=== PATIENT | female | born 1960 | race Caucasian/White ===

== ENCOUNTER 2023-12-10 22:59 | Emergency (ER) | payer BC, SELFPAY ==
[2023-12-10 23:11] VITALS: BP 130/76
[2023-12-11] MEDS: ATIVAN 1 MG IM (01:24)
--- NOTE | 2023-12-11 02:03 | ED.GENMED ---
History of Present Illness
General
Chief Complaint: Failure to Thrive
Source: patient
Exam Limitations: dementia
Time Seen by Provider: 12/11/23 00:44
Nursing documentation reviewed up to this point in time: agreed with
History of Present Illness
History of Present Illness:
Pleasantly demented
Review of Systems
Review of Systems
Allergies reviewed?: Yes
Unable to obtain full review of systems at this time due to: dementia
Other source history: ambulance crew
All Other Systems: Not applicable
Constitutional: Reports sleep disturbance; Denies fever
Psychiatric: Reports anxiety and other (Agitated)
Phy Exam
General Physical Exam
General Presentation: moderate distress (Moderate psychiatric distress)
General age: appears older than age
General Skin: warm and dry
General Habitus: debilitated
General Mental: anxious and tearful
General Hydration: appears well hydrated
ENT Exam
ENT Exam: EOMI, pharynx normal, neck supple and normocephalic
Cardiovascular Exam
Cardiovascular Exam: regular rate/rhythm and no edema
Pulmonary Exam
Pulmonary Exam: lungs clear, no respiratory distress, no rales, no crackles, no rhonchi, no stridor, no wheezing and no cough
Gastrointestinal Exam
Gastrointestinal Exam: normal bowel sounds, non tender, soft, no organomegaly, no pulsatile mass and non distended
Neurological Exam
Neurological Exam: confused
Musculoskeletal Exam
Musculoskeletal Exam: full ROM
Skin Exam
Skin Exam: normal color, warm/dry, no rash and no petechia
Psychiatric Exam
Psychiatric Exam: agitated and anxious
Course
Orders/Labs/Results
Orders:
Orders
12/11/23 01:19
Lorazepam [Ativan] 2 mg .ROUTE .STK-MED ONE
12/11/23 01:23
Lorazepam [Ativan] 1 mg IM NOW STA
12/11/23 02:01
Complete Blood Count/With Diff Urgent
Comprehensive Metabolic Panel Urgent
Lipase Urgent
PTT Urgent
Prothrombin Time Urgent
Troponin I Urgent
12/11/23 02:49
Electrocardiogram (*1) Urgent
Reason for Study: QTc Monitoring
EKG- Treatment ONCE
12/11/23 03:28
Troponin I Urgent
Abnormal Lab Results
12/11/23 12/11/23
02:01 03:28
Hct 36.9 L %
(37.0-47.0)
MCHC 37.1 H g/dL
(33.0-37.0)
Absolute Neuts (auto) 7.2 H 10^3/uL
(1.4-6.5)
Absolute Monos (auto) 0.8 H 10^3/uL
(0.1-0.6)
PT 15.0 H Sec
(11.4-14.6)
Sodium 146 H mmol/L
(135-145)
BUN 49 H mg/dl
(7-17)
Creatinine 1.2 H mg/dL
(0.6-1.0)
Glucose 116 H mg/dl
(70-99)
Calcium 10.8 H mg/dl
(8.4-10.2)
Troponin I 0.042 H* ng/ml 0.041 H* ng/ml
12/11/23 02:01
12/11/23 02:01
Vital Signs
Initial and Last Documented VS:
Initial Vital Signs
Temp Pulse Resp BP Pulse Ox
97.7 F 118 20 130/76 98
12/10/23 23:11 12/10/23 23:11 12/10/23 23:11 12/10/23 23:11 12/10/23 23:11
Last Documented Vital Signs
Temp Pulse Resp BP Pulse Ox
97.7 F 80 20 131/84 98
12/11/23 00:00 12/11/23 03:50 12/10/23 23:11 12/11/23 03:50 12/10/23 23:11
*Critical Care Note
Total Time (30-74mins, 75-104mins- exclusive of procedures): Not Applicable
Update Note
Update Note:
12/11/2023 0251 AM: Spoke with Yvette from [facility] who stated that patient has not been eating and drinking normally. She has been with them for approximately 2 weeks. No other complaints noted.
12/11/2023 0432 AM: Troponin is trending downward. The patient is demented, there are no outward signs of chest pain or cardiac distress.
12/11/2023 0433 AM: Called her brother Salvatore Fermin. Voicemail left as his phone went directly to voicemail.
ED Attending Note
-
Portions of this chart may have been created with voice recognition software.� Occasional wrong word or��sound alike� substitutions may have occurred due to the inherent limitations of voice recognition software.
Discharge Plan
Departure
Patient Disposition: Assisted/SNF
Date of Disposition: 12/11/23
Time of Disposition: 04:33
Condition: Fair
Discharge Problem:
Dementia, Anxiety
Instructions: Anxiety, Adult ED, BLOOD PRESSURE
Prescriptions:
No Action
clonidine HCl 0.1 mg Tablet
0.1 mg PO TID
acetaminophen 325 mg Tablet
650 mg PO Q6HPRN PRN (Reason: mild pain/fever)
trazodone 50 mg Tablet
50 mg PO HS
polyethylene glycol 3350 [Miralax] 17 gram Powder In Packet
17 g PO DAILYPRN PRN (Reason: constipation)
miconazole nitrate 2 % Cream
1 applic TOPICAL BIDPRN PRN (Reason: erythema)
sennosides-docusate sodium [Senna Plus] 8.6-50 mg Tablet
2 tab PO HS
sertraline 100 mg Tablet
100 mg PO HS
olanzapine 5 mg Tablet
5 mg PO DAILY
thiamine HCl (vitamin B1) 100 mg Tablet
100 mg PO BID
olanzapine 2.5 mg Tablet
2.5 mg PO Q4HPRN PRN (Reason: agitation)
famotidine 20 mg Tablet
20 mg PO DAILY
lorazepam 0.5 mg Tablet
0.5 mg PO Q6HPRN PRN (Reason: anxiety)
benztropine 1 mg Tablet
1 mg PO BID
hydroxyzine HCl 25 mg Tablet
50 mg PO Q6HPRN PRN (Reason: anxiety)
oxybutynin chloride 5 mg Tablet
5 mg PO DAILY
lisinopril 2.5 mg Tablet
2.5 mg PO DAILY
Gemtesa 75 mg Tablet
75 mg PO DAILY
Referrals:
Elder Jarrett DO [Family Provider] -
Activity Restrictions/Additional Instructions:
It was a pleasure meeting you and taking part in your care. We hope for your continued healing and wellness.
Please read discharge instructions in their entirety. However, they are for general education and may not describe your exact diagnosis at discharge. Information on your ER visit and medical conditions were discussed with you along with appropriate
follow up information...
If indicated, please take your medications as instructed and indicated on discharge paperwork.
Please schedule a follow up appointment as directed. Call to schedule an appointment
Please return to the emergency department with ANY change in, persisting, or worsening of symptoms. If any of your symptoms do not improve, or persist, or become more severe within 6-12 hours, please return to the emergency department for further
care.
Please return to the emergency department if you develop a headache, neck pain/stiffness, fever greater than 100.4F, chest pain, shortness of breath, persistent nausea, vomiting, slurred speech, difficulty walking, numbness/tingling, weakness, signs
of infection or any other symptoms that are worrisome to you.
If you have any questions or concerns please do not hesitate to call the Hospital at or E-mail me directly at [email or web address]
Interventions
Interventions:
*Risk Screen - Suicide Last Done: 12/11/23 00:00
*General Assessment Last Done: 12/11/23 00:00
*Neglect/Abuse Screening Last Done: 12/11/23 00:00
ED- Fall Risk Assessment Last Done: 12/11/23 05:34
*ED COVID-19 Vaccine History Last Done: 12/11/23 00:00
*Nursing Disposition Last Done: 12/11/23 05:34
Discharge Date and Time
Discharge Date/Time: 12/11/23 05:35
Print Language: ITALIAN
[2023-12-11 02:07] LABS: % Basophils 0.4 % (0-2); % Eosinophils 0.1 % (0-6); % Immature Granulocytes 0.3 % (0-0.5); % Lymphocytes 22.8 % (20.5-51.1); % Monocytes 7.9 % (1.7-9.3); % Neutrophils 68.5 % (42.2-75.2); Absolute Lymphocytes 2.4 10^3/uL (1.2-3.4); Absolute Monocytes 0.8 10^3/uL (0.1-0.6); Absolute Neutrophils 7.2 10^3/uL (1.4-6.5); Hematocrit 36.9 % (37.0-47.0); Hemoglobin 13.7 g/dL (12.0-16.0); Mean Corp Hgb Conc. 37.1 g/dL (33.0-37.0); Mean Corpuscular Hgb 30.6 pg (27.0-31.0); Mean Corpuscular Volume 82.4 fL (81.0-99.0); Mean Platelet Volume 9.2 fL (7.4-10.4); Nucleated Red Blood Cells % 0 %; Platelet Count 310 10^3/uL (130-400); Red Blood Cell Count 4.48 10^6/uL (4.20-5.40); Red Cell Dist. Width 14.4 % (11.5-14.5); White Blood Cell Count 10.5 10^3/uL (4.8-10.8)
[2023-12-11 02:24] LABS: INR 1.17
[2023-12-11 02:25] LABS: APTT 33.6 Sec (23.4-35.0)
[2023-12-11 02:29] LABS: ALT (SGPT) 34 U/L (0-35); AST (SGOT) 34 U/L (14-36); Albumin 4.6 g/dl (3.5-5.0); Alkaline Phosphatase 96 U/L (38-126); Blood Urea Nitrogen 49 mg/dl (7-17); Calcium 10.8 mg/dl (8.4-10.2); Carbon Dioxide 23 mmol/L (22-30); Chloride 105 mmol/L (98-107); Glucose 116 mg/dl (70-99); Lipase 201 U/L (23-300); Potassium 4.5 mmol/L (3.5-5.1); Sodium 146 mmol/L (135-145); Total Bilirubin 1.2 mg/dl (0.2-1.3); Total Protein 6.8 g/dl (6.3-8.2); eGFR 50.86
[2023-12-11 02:45] LABS: Troponin I 0.042 ng/ml
[2023-12-11 03:50] VITALS: BP 131/84
[2023-12-11 04:20] LABS: Troponin I 0.041 ng/ml
== END 2023-12-11 05:35 ==
LOC: EMR 22:59
PROVIDERS: EMERGENCY PHYSICIAN Student in an Organized Health Care Education/Training Program; FAMILY PHYSICIAN Internal Medicine Geriatric Medicine
DX: F03.94 Unspecified dementia, unspecified severity, with anxiety (principal); F41.9 Anxiety disorder, unspecified; R45.1 Restlessness and agitation; G47.9 Sleep disorder, unspecified; I10 Essential (primary) hypertension; F32.A Depression, unspecified; Z88.0 Allergy status to penicillin
CPT/HCPCS: 99284; 96372; 80053; 83690; 84484; 85025; 85610; 85730; 93005